=== PATIENT | female | born 1990 | race Hispanic/Latino ===

== ENCOUNTER 2018-06-30 10:59 | Outpatient (CLI) | payer OTHER ==
--- NOTE | 2018-06-30 12:56 | ULT ---
LIMITED RIGHT BREAST ULTRASOUND: Date: 06-30-18 Provided Clinical History: Right breast palpable abnormality. FINDINGS: Limited sonographic interrogation of the right breast was performed in the region of palpable concern . A 4-5 mm circumscribed focus of diminished echogenicity is present in this region, with an appearan ce suggesting a small cyst. No evidence for a solid mass or regional shadowing. IMPRESSION: 4-5 mm probable cyst is present in the region of palpable concern, though it is uncertain whether thi s corresponds to the palpable finding. Negative or benign imaging findings should not preclude furthe r investigation of clinically suspicious area. Patient was referred back to her physician. POS: MIC
== END 2018-06-30 11:00 | disposition home or self-care (01) ==
LOC: BICULT 10:59
PROVIDERS: ATTEND Obstetrics & Gynecology
DX: N63.10 Unspecified lump in the right breast, unspecified quadrant (principal)

== ENCOUNTER 2018-12-29 15:00 | Inpatient (IN) | payer OTHER ==
--- NOTE | 2018-12-29 13:21 | PDOC.LDHP ---
Labor and Delivery H&P Chief complaint: scheduled induction HPI: 28 yo @ 39w1d by LMP c/w 14 week sono who presents for IOL for TOLAC. Pt has h/o LTCS in 2012 (never labored, CS due to concern for macrosomia) and x1 in 2016. Antepartum c/o anemia on Fe and concern for possible macrosomia in this , EFW 3967 g on 12/22/18. Current gestational age (weeks): 39 Due date: 01/04/19 Dating criteria: last menstrual period Grav: 3 Para: 2 OB History Details: 2012- LTCS 2016- Current complications: other (Anemia Possible macrosomia) Abnormal US findings: No Past Medical History: Anemia Current medications: pre-jenniffer vitamins, iron Previous surgical history: low tranverse CS Allergies/Adverse Reactions: Allergies Allergy/AdvReac Type Severity Reaction Status Date / Time No Known Allergies Allergy Verified 07/22/16 08:20 Social history: none - Physical Exam Vital signs reviewed and normal: yes General: NAD Heart: RRR Lungs: nonlabored breathing Abdomen: gravid Extremeties: no edema FHT: category 1 (120s, mod bambi, +accels ,no decels) [place] contractions every: q5-6 min after cook placement - Vaginal Exam cm dilated: 1 (cephalic ) Effacement: 50% Station: -2 - OB Labs Blood type: B RH: positive Antibody Screen: negative HIV: negative RPR: negative HEPSAg: negative 1 hour GCT: negative GBS: negative Urine drug screen: negative Rubella: immune - Assessment 39w1d IUP H/O LTCS x1 and x1 Anemia Possible macrosomia - Plan Plan: admit to L&D, cervical ripening (s/p cook balloon placed by Dr. Flores), labor augmentation if indicated, informed consent obtained, anesthesia consult for pain management -: Reviewed R/B/A/I for TOLAC vs RCS multiple times with pt, including risk of TOLAC with possible macrosomia. She desires TOLAC.
--- NOTE | 2018-12-29 17:45 | PDOC.EVN ---
Event Note - Event Note Event Note: MONISHA Ciso Time: 1540 I have introduced myself to Ms Haim. Asked to place Cook Balloon for ripening by Dr Howard. Nursing staff has requested I defer until acute weather warning has passed in case patients need to be moved again. I have explained this to the patient. Jacqueline, our RN, also aware. I am ready to proceed with the placement when given the all clear by black ash worker
[2018-12-29 17:47] VITALS: BMI 35.1
[2018-12-29] MEDS ORDERED: Promethazine HCl 25 MG/ML VIAL IM PRN (17:57)
[2018-12-29] MEDS ORDERED: Methylergonovine 0.2 MG/ML VIAL IM PRN (17:57)
[2018-12-29] MEDS ORDERED: Butorphanol Tartrate 1 MG/ML VIAL SLOW IVP PRN (17:57)
[2018-12-29] MEDS ORDERED: Diphenoxylate HCl/Atropine Tablet PO PRN (17:57)
[2018-12-29] MEDS ORDERED: HYDROcodone/Acetaminophen 5/325 mg Tablet PO PRN (17:57)
[2018-12-29] MEDS ORDERED: Acetaminophen 500 MG TAB PO PRN (17:57)
[2018-12-29] MEDS ORDERED: Ondansetron PF 4 MG/2 ML Vial IVP PRN (17:57)
[2018-12-29] MEDS ORDERED: Carboprost 250 MCG/ML AMP IM PRN (17:57)
[2018-12-29] MEDS ORDERED: Lidocaine 1% (PF) 30 ML VIAL SC PRN (17:57)
[2018-12-29] MEDS ORDERED: NS / Oxytocin 40 units/1000ml 1,000 ML IV PRN (17:57)
[2018-12-29] MEDS ORDERED: Misoprostol 200 MCG TAB PR PRN (17:57)
[2018-12-29] MEDS ORDERED: Ibuprofen 800 MG TAB PO PRN (17:57)
[2018-12-29 18:18] LABS: Hemoglobin 11.4 g/dL (12.0-16.0); Mean Corpuscular HGB CONC 33.6 g/dL (32.0-36.0); Mean Corpuscular Hemoglobin 30.5 pg (27.0-31.0); Mean Corpuscular Volume 90.7 fL (78.0-98.0); Mean Platelet Volume 8.5 fL (7.4-10.4); Platelet Count 159 thou/uL (130-400); RBC Distribution Width 14.1 % (11.5-14.5); Red Blood Cell (RBC) Count 3.75 mill/uL (4.20-5.40); White Blood Cell (WBC) Count 10.2 thou/uL (4.8-10.8)
[2018-12-29] MEDS: Lactated Ringer's 1,000 ML IV SCH (18:43)
[2018-12-29 18:56] LABS: Syphilis Antibody Nonreactive (Nonreactive); Syphilis Antibody Index 0.03 S/CO (<1.00 Non-Reactive)
[2018-12-29 18:57] LABS: HBSAg Index 0.35 S/CO (0-0.99); HIV (1/2) Antibody/Antigen Non-Reactive (NonReactive); HIV 1/2 INDEX 0.12 S/CO (<1.00); Hep B Surf Ag Non-Reactive S/CO (NonReactive)
--- NOTE | 2018-12-29 19:05 | PDOC.EVN ---
Event Note - Event Note Event Note: OBGYN software configuration engineer [id number] @[id number]: Cook Balloon placed, as requested by primary MD, for TOLAC Cook balloon discussed with the patient and partner. Speculum placed in vaginal canal. CX visually 1-2cm Portio prepped with betadine scoppette. Cook balloon placed without stylet with rings without complication: no VB or LOF. 40ml sterile water placed in U (red) balloon and 20 in V (green) balloon per IFU. After 30 seconds, 40ml and 60ml placed respectfully for 80ml total sterile water instillation per balloon. No uterine tachysystole noted nor FHT changes Patient tolerated well
[2018-12-30] MEDS: Lactated Ringer's 1,000 ML IV SCH ×3 (02:28→10:29)
[2018-12-30] MEDS ORDERED: Fentanyl 4 mcg/Bup 0.1% Cadd 100 ML ONE ×2 (05:47→11:51)
--- NOTE | 2018-12-30 05:51 | PDOC.LDPN ---
Labor & Delivery Progress Note - Subjective Subjective: vaginal pressure - Objective Vital signs reviewed and normal: yes General: NAD Uterine fundus: non tender Dilation: 6 Effacement: 75% Station: -1 FHT: category 1 (120s, mod bambi, +accels, no decels ) [place] contractions every: irregular Other exam findings: Cook balloon removed AROM: clear fluid IUPC placed: yes FSE placed: yes - Assessment (1) 39 weeks gestation of Code(s): Z3A.39 - 39 WEEKS GESTATION OF Current Visit: No Status: Acute (2) Encounter for trial of labor Code(s): O33.4XX0 - MATERN CARE FOR DISPROPRTN OF MIX MATERN & FETL ORIGIN, UNSP Current Visit: No Status: Resolved (3) Previous delivery affecting Code(s): O34.219 - MATERNAL CARE FOR UNSP TYPE SCAR FROM PREVIOUS DEL Current Visit: No Status: Resolved Plan: continue plan of care -: Will start pitocin if ctx do not increase with AROM
[2018-12-30] MEDS ORDERED: diphenhydrAMINE 50 MG/ML VIAL IVP PRN (06:36)
[2018-12-30] MEDS ORDERED: Naloxone HCl 0.4 mg/ml Vial IVP PRN ×2 (06:36)
[2018-12-30] MEDS ORDERED: Promethazine HCl 25 MG/ML VIAL IM PRN (06:36)
[2018-12-30] MEDS ORDERED: Eucerin (Mineral Oil/Petrolatum,White) 30 gm Jar TOP PRN (06:36)
[2018-12-30] MEDS ORDERED: Lactated Ringer's 500 ML IV PRN (06:36)
[2018-12-30] MEDS ORDERED: ePHEDrine/0.9% NaCl/PF SYRINGE 50 mg/10 ml SLOW IVP PRN (06:36)
[2018-12-30] MEDS ORDERED: Ondansetron PF 4 MG/2 ML Vial IVP PRN (06:36)
[2018-12-30] MEDS ORDERED: Acetaminophen 325 MG TAB PO PRN (06:36)
[2018-12-30] MEDS ORDERED: Communication Order-Pharmacy FS SCH (06:45)
[2018-12-30] MEDS: Fentanyl 4 mcg/Bupivacaine 0.1% Cassette 100 ML EPIDURAL SCH ×2 (06:56→11:55)
[2018-12-30] MEDS: NS w/ Oxytocin 10 units 500 ML IV SCH (07:06)
--- NOTE | 2018-12-30 12:24 | PDOC.OPDEL ---
OB Operative/Delivery Note Delivery Dr/Surgeon: Ngoc Yanez DO Pre-Delivery Diagnosis: elective induction Procedure/Post Delivery Dx: vaginal delivery after CS Weeks gestation: 39 Anesthesia: epidural - Findings A Sex: female - 1 min: 9 - 5 min: 9 - Additional Findings/Plan Placenta delivered: spontaneous Repaired Obstetrical Laceration: 1st degree (and right hymenal ring laceration) Estimated blood loss: QBL 584 cc Compilations/Other Findings: Infant in cephalic presentation, FILIBERTO position; macrocomic (weight pending ). No difficulties with delivery Normal appearing placenta. Post delivery plan: routine recovery
[2018-12-30] MEDS ORDERED: Benzocaine-Menthol 82.5 ML CAN TOP PRN (13:26)
[2018-12-30] MEDS ORDERED: Bisacodyl 10 MG SUPP PR PRN (13:26)
[2018-12-30] MEDS ORDERED: Milk Of Magnesia 30 ML UDCUP PO PRN (13:26)
[2018-12-30] MEDS ORDERED: NS / Oxytocin 40 units/1000ml 1,000 ML IV SCH (13:26)
[2018-12-30] MEDS ORDERED: HYDROcodone/Acetaminophen 5/325 mg Tablet PO PRN (13:26)
[2018-12-30] MEDS: Ibuprofen 800 MG TAB PO SCH ×2 (13:44→21:38)
[2018-12-30] MEDS: Docusate Calcium (SURFAK) 240 MG CAP PO SCH (21:38)
[2018-12-31] MEDS: Ibuprofen 800 MG TAB PO SCH ×3 (04:43→21:53)
[2018-12-31 07:39] LABS: Mean Corpuscular HGB CONC 33.3 g/dL (32.0-36.0); Mean Corpuscular Hemoglobin 30.3 pg (27.0-31.0); Mean Corpuscular Volume 91.3 fL (78.0-98.0); Mean Platelet Volume 8.5 fL (7.4-10.4); Platelet Count 139 thou/uL (130-400); Red Blood Cell (RBC) Count 2.95 mill/uL (4.20-5.40); White Blood Cell (WBC) Count 9.4 thou/uL (4.8-10.8)
--- NOTE | 2018-12-31 08:17 | PDOC.PP ---
Post Progress Note Post Day #: 1 Subjective: No concerns. Doing well. latching. Minimal pain and lochia. PO intake tolerated: yes Flatus: yes Ambulation: yes Vital Signs (12 hours) Temp Pulse Resp BP 12/31/18 04:30 97.6 F 78 18 101/52 L 12/31/18 00:00 98.2 F 86 18 102/54 L Weight Weight 211 lb - Physical Examination General: NAD Cardiovascular: RRR Respiratory: non-labored breathing Abdominal: no distention, appropriately TTP Fundus firm & at: below umbilicus Neurological: no gross focal deficits Psychiatric: A&Ox3, normal affect Result Diagrams: 12/31/18 07:16 Additional Labs: Post Labs Blood Type B POSITIVE 12/29/18 18:01 Hep Bs Antigen Non-Reactive S/CO (NonReactive) 12/29/18 18:01 (1) 39 weeks gestation of Code(s): Z3A.39 - 39 WEEKS GESTATION OF Status: Resolved (2) Anemia Code(s): D64.9 - ANEMIA, UNSPECIFIED Status: Acute Qualifiers: Other causes of anemia: acute posthemorrhagic (3) (vaginal after ) Code(s): O34.219 - MATERNAL CARE FOR UNSP TYPE SCAR FROM PREVIOUS DEL Status: Acute - Assessment/Plan PPD 1 VSSAF Fe supplement. Anemia appropriate for EBL at delivery. Continue PP care, Plan for d/c home this PM with infant.
[2018-12-31] MEDS: Prenatal Vitamin 1 TAB PO SCH (10:05)
[2018-12-31] MEDS: Docusate Calcium (SURFAK) 240 MG CAP PO SCH ×2 (10:05→21:53)
[2018-12-31] MEDS: NS w/ Oxytocin 10 units 500 ML IV SCH (15:58)
--- NOTE | 2019-01-01 05:36 | PDOC.PP ---
Post Progress Note Post Day #: 2 Subjective: Doing well s/p PO intake tolerated: yes Flatus: yes Ambulation: yes Vital Signs (12 hours) Temp Pulse Resp BP Pulse Ox 12/31/18 19:53 97.6 F 88 20 112/55 L 100 Weight Weight 211 lb Vitals last 24 hours reviewed - Physical Examination General: NAD Cardiovascular: no m/r/g, RRR Respiratory: clear to auscultation bilaterally Abdominal: + bowel sounds, lochia, no distention, appropriately TTP Extremities: negative homans (B) Neurological: no gross focal deficits Psychiatric: A&Ox3, normal affect Result Diagrams: 12/31/18 07:16 Additional Labs: Post Labs Blood Type B POSITIVE 12/29/18 18:01 Hep Bs Antigen Non-Reactive S/CO (NonReactive) 12/29/18 18:01 (1) (vaginal after ) Code(s): O34.219 - MATERNAL CARE FOR UNSP TYPE SCAR FROM PREVIOUS DEL Status: Acute - Assessment/Plan PPD2 doing well Desires home today No acute issue sat this time OK for DSCH F/U 2-4 weeks Final DX: , delievered
[2019-01-01] MEDS: Ibuprofen 800 MG TAB PO SCH (05:54)
[2019-01-01] MEDS: NS w/ Oxytocin 10 units 500 ML IV SCH (06:35)
[2019-01-01 08:12] VITALS: BP 105/58; TEMP 98.6
[2019-01-01] MEDS: Docusate Calcium (SURFAK) 240 MG CAP PO SCH (09:20)
[2019-01-01] MEDS: Prenatal Vitamin 1 TAB PO SCH (09:20)
== END 2019-01-01 12:05 | disposition home or self-care (01) | DRG 806 ==
LOC: L&D 16:29 → 3SW 12-30 14:24
PROVIDERS: ADMIT Obstetrics & Gynecology; ATTEND Obstetrics & Gynecology
PROC: 3E0P7VZ Introduction of Hormone into Female Reproductive, Via Natural or Artificial Opening (ICD-10-PCS; 2018-12-29)
PROC: 10E0XZZ Delivery of Products of Conception, External Approach (ICD-10-PCS; principal; 2018-12-30)
PROC: 10H07YZ Insertion of Other Device into Products of Conception, Via Natural or Artificial Opening (ICD-10-PCS; 2018-12-30)
PROC: 10907ZC Drainage of Amniotic Fluid, Therapeutic from Products of Conception, Via Natural or Artificial Opening (ICD-10-PCS; 2018-12-30)
PROC: 3E033VJ Introduction of Other Hormone into Peripheral Vein, Percutaneous Approach (ICD-10-PCS; 2018-12-30)
DX: O36.60X0 Maternal care for excessive fetal growth, unspecified trimester, not applicable or unspecified (principal); D62 Acute posthemorrhagic anemia; Z37.0 Single live birth; O34.211 Maternal care for low transverse scar from previous cesarean delivery; O70.0 First degree perineal laceration during delivery; O76 Abnormality in fetal heart rate and rhythm complicating labor and delivery; O99.02 Anemia complicating childbirth; Z3A.39 39 weeks gestation of pregnancy; O36.63X0 Maternal care for excessive fetal growth, third trimester, not applicable or unspecified
CPT/HCPCS: 36415; 51702; 85027; 86780; 86850; 86900; 86901; 87340; 87389; C1726; J2001; J2590